=== PATIENT | female | born 1945 | race Hispanic/Latino ===

== ENCOUNTER 2017-12-14 14:23 | Emergency (ER) | payer OTHER ==
[~2017-12-14] VITALS: Ht 162.6 cm; Wt 90.7 kg
[~2017-12-14 14:23] MED LIST: CELEXA10 MG PO; CITALOPRAM HBR20 MG PO; CLOPIDOGREL75 MG PO; LATANOPROST2.5 ML OP; PLAVIX75 MG PO; PRAVACHOL40 MG PO; PRAVASTATIN SOD40 MG PO; ULTRAM50 MG PO; ZOFRAN ODT4 MG SL
[2017-12-14] MEDS ORDERED: HYDROCODONE/APAP 5MG-325MG TAB PO ONE (14:45)
--- NOTE | 2017-12-14 15:59 | Diagnostic Imaging Report ---
EXAMINATION: CHEST 2 VIEWS INDICATION: ^Trauma, fall. conern left clavicle fracture COMPARISON: None FINDINGS: PA and lateral views TUBES and LINES: None. LUNGS: Lungs are well inflated. There are bibasilar atelectasis. There is no evidence of pneumonia or pulmonary edema. PLEURA: No pleural effusion or pneumothorax. HEART AND MEDIASTINUM: The cardiomediastinal silhouette is unremarkable mild mild cardiomegaly. BONES AND SOFT TISSUES: Distal right clavicular fracture. Soft tissues are unremarkable. UPPER ABDOMEN: No free air under the diaphragm. IMPRESSION: Distal right clavicular fracture. Signed by: Dr. Lex Talbert M.D. on 12/14/2017 3:56 PM
--- NOTE | 2017-12-14 16:01 | Diagnostic Imaging Report ---
SHOULDER RIGHT COMPLETE - 2 views HISTORY: Pain. Fell. COMPARISON: None available. FINDINGS: Bones: Mild comminuted distal right clavicular fracture without involvement of the AC joint. However, this does extend to the coracoclavicular joint. Joints: The joint spaces are well-maintained. Soft tissues: The soft tissues appear unremarkable. IMPRESSION: Comminuted distal clavicular fracture with involvement of the coracoid clavicular joint. Signed by: Dr. Lex Talbert M.D. on 12/14/2017 3:58 PM
[2017-12-14] MEDS ORDERED: TYLENOL WITH C1 EACH PO (16:18)
== END 2017-12-14 16:47 | disposition home or self-care (01) ==
LOC: ER 14:23
DX: S42.031A Displaced fracture of lateral end of right clavicle, initial encounter for closed fracture (principal); W01.0XXA Fall on same level from slipping, tripping and stumbling without subsequent striking against object, initial encounter; Y92.008 Other place in unspecified non-institutional (private) residence as the place of occurrence of the external cause; Z87.891 Personal history of nicotine dependence
CPT/HCPCS: 71046; 99284

== ENCOUNTER 2019-09-12 14:17 | Emergency (ER) | payer OTHER ==
[~2019-09-12] VITALS: Ht 162.6 cm; Wt 90.7 kg
[~2019-09-12 14:17] MED LIST changes: +TYLENOL WITH C1 EACH PO
[2019-09-12] MEDS ORDERED: SODIUM CHLORIDE 0.9% 1000ML 1,000 ML IV STA (14:52)
[2019-09-12] MEDS ORDERED: ONDANSETRON HCL INJ 2MG/ML 2ML 2 MG/ML VIAL IV STA (14:52)
[2019-09-12 16:04] LABS: BASOPHILS # (AUTO) 0.1 (0.0-0.1); BASOPHILS % 0.4 % (0.0-1.0); EOSINOPHILS % 0.1 % (0.0-6.0); HEMATOCRIT 44.9 % (34.2-44.1); HEMOGLOBIN 14.6 g/dL (12.0-16.0); LYMPHOCYTES # (AUTO) 1.7 (1.0-3.2); LYMPHOCYTES % 10.7 % (18.0-39.1); MEAN CORPUSCULAR HEMOGLOBIN 29.7 pg (28-32); MEAN CORPUSCULAR HGB CONC 32.5 g/dL (31-35); MEAN CORPUSCULAR VOLUME 91.3 fL (81-99); MONOCYTES # (AUTO) 1.5 (0.2-0.8); MONOCYTES % 9.5 % (4.4-11.3); NEUTROPHILS # (AUTO) 12.4 (2.1-6.9); NEUTROPHILS % 78.5 % (38.7-80.0); PLATELET COUNT 158 x10e3/uL (140-360); RED BLOOD COUNT 4.92 x10e6/uL (3.6-5.1); RED CELL DISTRIBUTION WIDTH 14.8 % (11.7-14.4)
[2019-09-12 16:16] LABS: INR 0.93
[2019-09-12 16:25] LABS: ALANINE AMINOTRANSFERASE 15 IU/L (0-55); ALBUMIN/GLOBULIN RATIO 0.8 (0.8-2.0); ALKALINE PHOSPHATASE 94 IU/L (40-150); ANION GAP 12.9 mmol/L (8-16); BLOOD UREA NITROGEN 9 mg/dL (7-26); BUN/CREATININE RATIO 11 (6-25); CALCIUM 8.9 mg/dL (8.4-10.2); CARBON DIOXIDE 26 mmol/L (22-29); CHLORIDE 100 mmol/L (98-107); CREATINE KINASE 32 IU/L (29-168); CREATININE, SERUM 0.81 mg/dL (0.57-1.11); EST GLOMERULAR FILTRATION RATE > 60 ML/MIN (60-); GLUCOSE 89 mg/dL (74-118); POTASSIUM 3.9 mmol/L (3.5-5.1); SODIUM 135 mmol/L (136-145)
--- NOTE | 2019-09-12 16:26 | Emergency Department Note ---
History of Present Illnes History of Present Illness Chief Complaint: COVID PUI History of Present Illness This is a 74 year old female presents to ED via ems for c/o severe weakness, "just can't get up and i want to sleep constantly". 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 Mode: [facility] Treatment [place] SPECIALIST: See EMS Report Vpk Teacher Required: No Onset (how long ago): day(s) (2) Radiation: Reports non-radiation Severity: moderate Onset quality: gradual Timing of current episode: constant Progression: unchanged Chronicity: new Context: Denies recent illness Relieving factors: none Exacerbating factors: none Associated symptoms: Reports denies other symptoms, Reports weakness; Denies cough, Denies shortness of breath Treatments prior to arrival: none Past Medical/Family History Physician Review I have reviewed the patient's past medical and family history. Any updates have been documented here. Past Medical History Recent Fever: Yes Clinical Suspicion of Infectio: Yes New/Unexplained Change in Ment: No Other Medical History: HIGH CHOLESTEROL ANIEXTY HYPERLIPIDEMIA Other Surgery: LEFT LEG Social History Smoking Cessation: Never Smoker Counseling Performed: No Alcohol Use: None Any Illegal Drug Use: No TB Exposure/Symptoms: No Physically hurt or threatened: No Family History Family history of heart diseas: No Other Last Tetanus: UTD Any Pre-Existing Lines (PICC,: No Review of Systems Review of Systems Constitutional: Reports malaise, Reports weakness EENTM: Reports no symptoms Cardiovascular: Reports no symptoms Respiratory: Reports no symptoms Gastrointestinal: Reports no symptoms Genitourinary: Reports no symptoms Musculoskeletal: Reports no symptoms Integumentary: Reports no symptoms Neurological: Reports no symptoms Psychological: Reports no symptoms Endocrine: Reports no symptoms Hematological/Lymphatic: Reports no symptoms Physical Exam Related Data Allergies: Coded Allergies: No Known Drug Allergies (Verified Allergy, Unknown, 12/14/17) Triage Vital Signs Vital Signs Date Time Temp Pulse Resp B/P (MAP) Pulse Ox O2 Delivery O2 Flow Rate FiO2 09/12/19 14:26 99.8 95 21 130/54 97 Room Air Vital signs reviewed: Yes Physical Exam CONSTITUTIONAL Constitutional: Present well-developed, Present well-nourished HENT HENT: Present normocephalic, Present atraumatic, Present oropharynx clear/moist, Present nose normal HENT L/R: Present left ext ear normal, Present right ext ear normal EYES Eyes: Reports PERRL, Reports conjunctivae normal NECK Neck: Present ROM normal PULMONARY Pulmonary: Present effort normal, Present breath sounds normal CARDIOVASCULAR Cardiovascular: Present regular rhythm, Present heart sounds normal, Present capillary refill normal, Present normal rate GASTROINTESTINAL Abdominal: Present soft, Present nontender, Present bowel sounds normal GENITOURINARY Genitourinary: Present exam deferred SKIN Skin: Present warm, Present dry MUSCULOSKELETAL Musculoskeletal: Present ROM normal NEUROLOGICAL Neurological: Present alert, Present oriented x 3, Present no gross motor or sensory deficits PSYCHOLOGICAL Psychological: Present mood/affect normal, Present judgement normal Results Laboratory Laboratory Laboratory Tests Test 09/12/19 15:47 09/12/19 15:29 Lab results reviewed: Yes Laboratory comments Laboratory Tests Test 09/12/19 17:49 09/12/19 15:47 09/12/19 15:29 White Blood Count 15.82 x10e3/uL (4.8-10.8) Red Blood Count 4.92 x10e6/uL (3.6-5.1) Hemoglobin 14.6 g/dL (12.0-16.0) Hematocrit 44.9 % (34.2-44.1) Mean Corpuscular Volume 91.3 fL (81-99) Mean Corpuscular Hemoglobin 29.7 pg (28-32) Mean Corpuscular Hemoglobin Concent 32.5 g/dL (31-35) Red Cell Distribution Width 14.8 % (11.7-14.4) Platelet Count 158 x10e3/uL (140-360) Neutrophils (%) (Auto) 78.5 % (38.7-80.0) Lymphocytes (%) (Auto) 10.7 % (18.0-39.1) Monocytes (%) (Auto) 9.5 % (4.4-11.3) Eosinophils (%) (Auto) 0.1 % (0.0-6.0) Basophils (%) (Auto) 0.4 % (0.0-1.0) Neutrophils # (Auto) 12.4 (2.1-6.9) Lymphocytes # (Auto) 1.7 (1.0-3.2) Monocytes # (Auto) 1.5 (0.2-0.8) Eosinophils # (Auto) 0.0 (0.0-0.4) Basophils # (Auto) 0.1 (0.0-0.1) Absolute Immature Granulocyte (auto 0.13 x10e3/uL (0-0.1) Prothrombin Time 13.0 seconds (11.9-14.5) Prothromb Time International Ratio 0.93 Activated Partial Thromboplast Time 23.3 seconds (23.8-35.5) Sodium Level 135 mmol/L (136-145) Potassium Level 3.9 mmol/L (3.5-5.1) Chloride Level 100 mmol/L (98-107) Carbon Dioxide Level 26 mmol/L (22-29) Anion Gap 12.9 mmol/L (8-16) Blood Urea Nitrogen 9 mg/dL (7-26) Creatinine 0.81 mg/dL (0.57-1.11) Estimat Glomerular Filtration Rate > 60 ML/MIN (60-) BUN/Creatinine Ratio 11 (6-25) Glucose Level 89 mg/dL (74-118) Calcium Level 8.9 mg/dL (8.4-10.2) Magnesium Level 2.0 MG/DL (1.3-2.1) Total Bilirubin 2.0 mg/dL (0.2-1.2) Aspartate Amino Transf (AST/SGOT) 20 IU/L (5-34) Alanine Aminotransferase (ALT/SGPT) 15 IU/L (0-55) Alkaline Phosphatase 94 IU/L (40-150) Creatine Kinase 32 IU/L (29-168) Creatine Kinase MB 0.30 ng/mL (0-5.0) Troponin I 0.014 ng/mL (0-0.300) B-Type Natriuretic Peptide 37.5 pg/mL (0-100) Total Protein 6.9 g/dL (6.5-8.1) Albumin 3.0 g/dL (3.5-5.0) Globulin 3.9 g/dL (2.3-3.5) Albumin/Globulin Ratio 0.8 (0.8-2.0) Imaging Imaging results reviewed: Yes Procedures 12 Lead ECG Interpretation ECG Interpretation : ECG: ECG 1 Vpk Teacher: Interpreted by ED physician Date: Sep 12, 2019 Time: 15:43 Rhythm: sinus rhythm Rate: normal (91) QRS axis: normal ST segments normal: Yes T waves normal: Yes Clinical Impression: normal ECG Assessment & Plan Medical Decision Making MDM gen weakness, somnolence - cbc, chems, ecg, cardiacs, blood cx's, ua/cx, cxr, covid swab - r/o uti, pneumonia, covid19, electrolyte abnl, stemi/nstemi Reassessment Reassessment improved - ua still pending - report to Dr dong to f/u PT WANTS TO GO HOME - WILL GIVE ZPACK AND OMNICEF Assessment & Plan Final Impression: (1) Malaise (2) UTI (urinary tract infection) (3) Bronchitis Depart Disposition: HOME, SELF-CARE Last Vital Signs Date Time Temp Pulse Resp B/P (MAP) Pulse Ox O2 Delivery O2 Flow Rate FiO2 09/12/19 14:26 99.8 95 21 130/54 97 Room Air Home Meds Active Scripts Acetaminophen With Codeine (TYLENOL WITH CODEINE #3 TABLET) 1 Each Tablet, 300 MG PO Q4H PRN for PAIN, #20 TAB Prov:DAVID JUÁREZ ORDER ENTRY ADMINISTRATOR 12/14/17 Reported Medications Citalopram Hydrobromide (CITALOPRAM HBR) 20 Mg Tablet, 20 MG PO DAILY, TAB 11/16/15 Latanoprost (LATANOPROST) 2.5 Ml Drops, 1 DROP OP DAILY, BOTTLE 11/16/15 Ondansetron (ZOFRAN ODT) 4 Mg Tab.rapdis, 4 MG SL Q6H PRN for NAUSEA AND VOMITING, TAB 11/16/15 Tramadol Hcl (ULTRAM) 50 Mg Tablet, 50 MG PO BID, TAB 11/16/15 Pravastatin Sodium (PRAVASTATIN SODIUM) 40 Mg Tablet, 40 MG PO DAILY 11/16/15 Medications in the ED Ondansetron HCl 4 mg ONCE STAT IV Last administered on 09/12/19at 15:31; Admin Dose 4 MG; Start 09/12/19 at 14:52; Stop 09/12/19 at 15:12; Status DC Sodium Chloride 1,000 ml @ 0 mls/hr Q0M STAT IV Last administered on 09/12/19at 15:31; Admin Dose 999 MLS/HR; Start 09/12/19 at 14:52; Stop 09/12/19 at 14:59; Status DC MARIO SMITH MD Sep 12, 2019 16:26
--- NOTE | 2019-09-12 17:06 | Diagnostic Imaging Report ---
EXAMINATION: CHEST SINGLE (PORTABLE) INDICATION: ^Y ^weakness, somnolence COMPARISON: Multiple prior chest x-ray examinations most recent dated 03/16/2017. FINDINGS: AP view TUBES and LINES: None. LUNGS/PLEURA: Increased left basilar opacity which could be due to atelectasis and or effusion. HEART AND MEDIASTINUM: Cardiac size is mildly enlarged., Unchanged BONES AND SOFT TISSUES: No acute osseous lesion. Soft tissues are unremarkable. UPPER ABDOMEN: No free air under the diaphragm. IMPRESSION: Increased left basilar opacity which could be due to atelectasis and or effusion. Signed by: Finn Armijo MD on 09/12/2019 5:02 PM
--- NOTE | 2019-09-12 17:18 | NUR ---
Spoke with patient's sister, Vicky Lanier ph: [phone].
[2019-09-12] MEDS ORDERED: AZITHROMYCIN 500MG/NS 250 ML 250 ML IV ONE (18:00)
[2019-09-12] MEDS ORDERED: CEFTRIAXONE SOD 1 GM/NS 50 ML 50 ML IV SCH (18:00)
[2019-09-12 18:01] LABS: COLOR,URINE YELLOW (YELLOW)
[2019-09-12 18:03] LABS: CLARITY,URINE CLEAR (CLEAR)
[2019-09-12 18:04] LABS: KETONES,URINE NEGATIVE (NEGATIVE); LEUKOCYTE ESTERASE ,URINE NEGATIVE (NEGATIVE); NITRITE,URINE NEGATIVE (NEGATIVE); PROTEIN,URINE DIPSTICK NEGATIVE (NEGATIVE); URINE UROBILINOGEN 1 mg/dL (0.2 - 1)
[2019-09-12 18:05] LABS: BILIRUBIN,URINE NEGATIVE (NEGATIVE)
[2019-09-12 18:14] LABS: BACTERIA,URINE RARE /HPF; EPITHELIAL CELLS,URINE FEW /LPF
[2019-09-12 18:23] LABS: PROTHROMBIN TIME 13.7 seconds (11.9-14.5)
[2019-09-12 18:55] LABS: PARTIAL THROMBOPLASTIN TIME 29.7 seconds (23.8-35.5)
[2019-09-12 21:17] LABS: PLATELET ESTIMATE SLIGHTLY DECREASED; PLATELET MORPHOLOGY COMMENT NORMAL
[2019-09-12 21:18] LABS: LYMPHOCYTES % (MANUAL) 9 % (19-48); MONOCYTES % (MANUAL) 7 % (3.4-9.0); NEUTROPHILS % (MANUAL) 84 % (40-74)
== END 2019-09-12 20:30 | disposition home or self-care (01) ==
LOC: ER 15:00
DX: J40 Bronchitis, not specified as acute or chronic (principal); R53.81 Other malaise; N39.0 Urinary tract infection, site not specified; R50.9 Fever, unspecified; R53.1 Weakness; E78.5 Hyperlipidemia, unspecified
CPT/HCPCS: 36415; 71045; 80053; 81001; 82550; 82553; 83735; 83880; 84484; 85025; 85610; 85730; 87086; 93005; 99284; J2405; J7030; U0002

== ENCOUNTER 2022-07-22 17:49 | Emergency (ER) | payer MEDICARE, OTHER ==
[~2022-07-22] VITALS: Ht 162.6 cm; Wt 90.7 kg
[2022-07-22 19:47] LABS: CLARITY,URINE SL CLOUDY (CLEAR); COLOR,URINE YELLOW (YELLOW)
[2022-07-22 19:48] LABS: KETONES,URINE TRACE (NEGATIVE); LEUKOCYTE ESTERASE ,URINE NEGATIVE (NEGATIVE); NITRITE,URINE NEGATIVE (NEGATIVE); PROTEIN,URINE DIPSTICK NEGATIVE (NEGATIVE); URINE UROBILINOGEN 0.2 mg/dL (0.2 - 1)
[2022-07-22 19:58] LABS: BACTERIA,URINE MANY /HPF; EPITHELIAL CELLS,URINE MODERATE /LPF; RBC,URINE 0-5 /HPF (0-5); WBC,URINE (MAN) 0-5 /HPF (0-5)
[2022-07-22 20:10] VITALS: O2SAT 98
[2022-07-22] MEDS ORDERED: PYRIDIUM200 MG PO (20:10)
[2022-07-22] MEDS ORDERED: CEFDINIR300 MG PO (20:10)
== END 2022-07-22 20:22 | disposition home or self-care (01) ==
LOC: ER 18:26
DX: R30.0 Dysuria (principal); R35.0 Frequency of micturition; E78.5 Hyperlipidemia, unspecified; F41.9 Anxiety disorder, unspecified
CPT/HCPCS: 81001; 87086; 99284

== ENCOUNTER 2024-04-29 12:30 | Emergency (ER) | payer MEDICARE, OTHER ==
[~2024-04-29] VITALS: Ht 165.1 cm; Wt 59.0 kg
[~2024-04-29 12:30] MED LIST changes: +CEFDINIR300 MG PO; +CEPHALEXIN500 MG PO; +PYRIDIUM200 MG PO
[2024-04-29 12:36] VITALS: PULSE 75; RESP 18; TEMP 97.8
[2024-04-29] MEDS ORDERED: KETOROLAC TROMETHAMINE 60 MG/2 ML VIAL IM STA (13:13)
[2024-04-29] MEDS ORDERED: LIDOCAINE HCL 1% LOCAL INJ 20 ML VIAL ONE (13:15)
[2024-04-29] MEDS ORDERED: NEOMYCIN/POLYMYX/BACITR OINT 0.9 GM PKT ONE (13:23)
[2024-04-29] MEDS: LIDOCAINE HCL 1% LOCAL INJ 20 ML VIAL INJ STA (13:44)
[2024-04-29] MEDS: TETANUS/DIPHTHERIA TOX ADULT 0.5 ML SYR IM ONE (13:45)
[2024-04-29] MEDS ORDERED: CEPHALEXIN500 MG PO (14:52)
[2024-04-29 15:16] VITALS: BP 116/79; PULSE 68; RESP 16; TEMP 97.5; O2SAT 98
== END 2024-04-29 15:17 | disposition home or self-care (01) ==
LOC: ER 12:36
DX: S01.111A Laceration without foreign body of right eyelid and periocular area, initial encounter (principal); S51.011A Laceration without foreign body of right elbow, initial encounter; S80.211A Abrasion, right knee, initial encounter; W01.0XXA Fall on same level from slipping, tripping and stumbling without subsequent striking against object, initial encounter; Y93.01 Activity, walking, marching and hiking; Y92.481 Parking lot as the place of occurrence of the external cause; E78.5 Hyperlipidemia, unspecified; E78.00 Pure hypercholesterolemia, unspecified; F41.9 Anxiety disorder, unspecified
CPT/HCPCS: 12011; 70450; 72125; 73560; 90471; 90714; 99284; J2003

== ENCOUNTER 2024-08-21 15:00 | Outpatient (RCR) | payer MEDICARE, OTHER | END 2024-08-24 | LOC: PT 15:00 | PROVIDERS: ATTEND Physician Assistant | DX: M17.11 Unilateral primary osteoarthritis, right knee (principal); R26.81 Unsteadiness on feet ==

== ENCOUNTER 2024-09-17 15:00 | Outpatient (RCR) | payer MEDICARE, OTHER | END 2024-09-24 | LOC: PT 15:00 | PROVIDERS: ATTEND Physician Assistant | DX: M17.11 Unilateral primary osteoarthritis, right knee (principal); R26.89 Other abnormalities of gait and mobility ==

== ENCOUNTER 2024-10-21 16:00 | Outpatient (RCR) | payer MEDICARE, OTHER | END 2024-10-25 | LOC: PT 16:00 | PROVIDERS: ATTEND Physician Assistant | DX: M17.11 Unilateral primary osteoarthritis, right knee (principal); R26.89 Other abnormalities of gait and mobility ==

== ENCOUNTER → 2024-11-24 | Outpatient (RCR) | payer MEDICARE, OTHER | LOC: PT 10-28 08:23 | PROVIDERS: ATTEND Physician Assistant | DX: M17.11 Unilateral primary osteoarthritis, right knee (principal); R26.89 Other abnormalities of gait and mobility ==